=== PATIENT | female | born 1985 | race Caucasian/White ===

== ENCOUNTER → 2019-11-07 | Outpatient (CLI) | payer BC ==
[~2019-11-07] MED LIST: AMOXICILLIN500 M3 PO; AMOXICILLIN500 MG PO; ATIVAN0.5 MG PO; CIPROFLOXACIN500 MG PO; CLARITIN-D 12 H1 TAB PO; DIFLUCAN150 MG PO; EES400 MG PO; HYDROCODONE BIT1 T11 PO; LIDOCAINE VISC100 ML MM; MOTRIN800 MG PO; NAPROSYN500 MG PO; NORCO 325 MG-51 TAB PO; NYSTATIN100000 U/M PO; Nizoral 2%15 GM T; PARAFON FORTE500 MG PO; PENICILLIN VK500 MG PO; PHENERGAN25 M1 PO; PREDNISONE10 MG PO; Peridex 473 ML473 ML PO; ROBITUSSIN AC 110 ML PO; TOPROL XL25 MG PO; ULTRAM50 MG PO; ZITHROMAX Z PA250 MG PO; ZITHROMAX250 MG PO; ZOFRAN4 MG PO; ZYRTEC10 MG PO
== END | disposition home or self-care (01) ==
LOC: CARD 08:33
DX: R00.2 Palpitations (principal)

== ENCOUNTER → 2019-11-27 | Outpatient (CLI) | payer BC | END | disposition home or self-care (01) | LOC: CARD 07:43 | PROVIDERS: ATTEND Internal Medicine | DX: R06.02 Shortness of breath (principal) ==

== ENCOUNTER → 2024-07-06 | Outpatient (CLI) | payer BC | END | disposition home or self-care (01) | LOC: MAMMO 08:14 | PROVIDERS: ATTEND Internal Medicine | DX: Z12.31 Encounter for screening mammogram for malignant neoplasm of breast (principal); R92.333 Mammographic heterogeneous density, bilateral breasts; R92.1 Mammographic calcification found on diagnostic imaging of breast ==